=== PATIENT | female | born 1990 | race Caucasian/White ===

== ENCOUNTER 2024-03-10 00:33 | Day surgery (SDC) | payer OTHER, SELFPAY ==
[2024-02-25 12:36] VITALS: BMI 23.8
[2024-03-10 11:27] VITALS: BMI 23.9
[2024-03-10 11:31] VITALS: BP 122/71; PULSE 72; RESP 19; TEMP 36.4; O2SAT 100
[2024-03-10] MEDS: LACTATED RINGERS 1,000 ML 150 ML IV CONT (11:33)
--- NOTE | 2024-03-10 11:47 | P.PNAN_ITS ---
Anes - Initial Pre Proc Eval Procedure: Operation Date: 03/10/24 12:30 Proposed Procedures p Esophagogastroduodenoscopy - Matt Hayes MD Date/Time: 03/10/24 11:47 Surgeon: Matt Hayes MD Pre Op Diagnosis: Dysphagia Patient Data Age: 33 Gender: F Height: 1.65 m Weight: 65.3 kg Last Vital Signs Temp 97.5 F L 03/10/24 11:31 Pulse 72 03/10/24 11:31 Resp 19 03/10/24 11:31 BP 122/71 03/10/24 11:31 Pulse Ox 100 03/10/24 11:31 O2 Del Method Room Air 03/10/24 11:31 Allergies Allergy/AdvReac Type Severity Reaction Status Date / Time No Known Allergies Allergy Verified 03/10/24 11:26 Home Medications Medication Instructions Recorded Confirmed Type bupropion HCl 150 mg 24 hr tablet, 150 mg PO DAILY 10/02/23 03/10/24 History extended release loratadine 10 mg tablet (Claritin) 10 mg PO DAILY 10/02/23 03/10/24 History minocycline 100 mg capsule 100 mg PO DAILY #30 caps 02/17/24 03/10/24 Rx azelaic acid 15 % topical foam 1 applic topical BID #50 grams 02/23/24 03/10/24 Rx (Finacea) linaclotide 145 mcg capsule 145 mcg PO QAM 30 days #30 caps 02/23/24 03/10/24 Rx (Linzess) sulfacetamide sodium (acne) 10 % 1 applic topical BID #118 mL 02/23/24 03/10/24 Rx lotion (suspension) alprazolam 0.25 mg tablet (Xanax) 0.25 mg PO BID PRN anxious 02/25/24 03/10/24 History spironolactone 50 mg tablet 50 mg PO DAILY 02/25/24 03/10/24 History Patient hx anesthesia problems: none Family hx anesthesia problems: none Results Review: All pre-operative results and documents have been reviewed as part of the pre- operative evaluation. [facility] Past Medical History Medical History (Updated 09/29/23 @ 14:40 by Matt Hayes MD) Dysphagia Social History Social History Smoking status: Never smoker Alcohol intake: current Alcohol use details: Rarely Substance use type: does not use Living arrangements: with family Spiritual care concerns: No Anes - Eval Final PreProcedure Day of Procedure 03/10/24 11:47 Patient weight: normal Heart: regular rate and rhythm Lungs: clear to auscultation Airway: Mallampati scale class II Neurological: alert and oriented Last oral intake: >/= 8 hours ASA classification: II Emergent: no Anesthetic plan: proceed Anesthesia type and monitoring: general GIVS and standard monitoring Results Review: All pre-operative results and documents have been reviewed as part of the pre-operative evaluation. Informed Consent: The patient's anesthetic plan and its attendant risks and benefits were discussed with the patient/family/POA. Questions were solicited and answers provided to the satisfaction of the patient/family/POA.
--- NOTE | 2024-03-10 12:15 | PM.HPGS ---
History of Present Illness History of Present Illness Consent: Risks, benefits, and alternatives have been discussed and questions answered. Patient agrees to proceed with procedure. Chief complaint: Dysphagia Narrative: Gracie Jasmine is a 33 year old female here for intermittent dysphagia to solids, had EGD but several years ago Review of Systems Review of Systems: All systems reviewed & are unremarkable except as noted in HPI and below PMFSH Past Medical History Medical History (Updated 09/29/23 @ 14:40 by Matt Hayes MD) Dysphagia Social History Social History Smoking status: Never smoker Alcohol intake: current Alcohol use details: Rarely Substance use type: does not use Living arrangements: with family Spiritual care concerns: No Meds Home Medications and Allergies Home Medications Medication Instructions Recorded Confirmed Type bupropion HCl 150 mg 24 hr tablet, 150 mg PO DAILY 10/02/23 03/10/24 History extended release loratadine 10 mg tablet (Claritin) 10 mg PO DAILY 10/02/23 03/10/24 History minocycline 100 mg capsule 100 mg PO DAILY #30 caps 02/17/24 03/10/24 Rx azelaic acid 15 % topical foam 1 applic topical BID #50 grams 02/23/24 03/10/24 Rx (Finacea) linaclotide 145 mcg capsule 145 mcg PO QAM 30 days #30 caps 02/23/24 03/10/24 Rx (Linzess) sulfacetamide sodium (acne) 10 % 1 applic topical BID #118 mL 02/23/24 03/10/24 Rx lotion (suspension) alprazolam 0.25 mg tablet (Xanax) 0.25 mg PO BID PRN anxious 02/25/24 03/10/24 History spironolactone 50 mg tablet 50 mg PO DAILY 02/25/24 03/10/24 History Allergies Allergy/AdvReac Type Severity Reaction Status Date / Time No Known Allergies Allergy Verified 03/10/24 11:26 Vital Signs Vital Signs - 24 hr 03/10/24 11:31 Temperature 97.5 F L Pulse Rate 72 Respiratory Rate 19 Blood Pressure 122/71 Pulse Oximetry 100 Oxygen Delivery Room Air Exam Const: General: comfortable and no acute distress HENMT: Face/Nose/Sinus: Normal nares present Eyes: General: appearance normal, both eyes and all related structures Neck: Neck: no JVD Resp: Auscultation: clear to auscultation bilaterally Cardio: Rate: regular rate Rhythm: regular rhythm GI: Inspection: non-distended GI Palp: Yes Soft to palpation Skin: General skin exam: normal color Neuro: General: gait normal Speech: normal speech Extrem: General: normal to inspection Psych: Mental Status: mental status grossly normal Assessment and Plan Assessment and plan (1) Dysphagia: Code(s): R13.10 - Dysphagia, unspecified Status: Acute Assessment and Plan: egd with bx
[2024-03-10 12:37] VITALS: BP 88/47; PULSE 76; RESP 22; O2SAT 100
[2024-03-10 12:47] VITALS: BP 99/63; PULSE 69; RESP 16; O2SAT 100
[2024-03-10 12:57] VITALS: BP 101/67; PULSE 61; RESP 15; O2SAT 100
== END 2024-03-10 13:08 | disposition home or self-care (01) ==
PROVIDERS: Visit Provider Internal Medicine Gastroenterology
PROC: 0DJ08ZZ Inspection of Upper Intestinal Tract, Via Natural or Artificial Opening Endoscopic (ICD-10-PCS; CPT 43235; principal; 2024-03-10 12:30)
DX: K20.0 Eosinophilic esophagitis (principal); K31.84 Gastroparesis
CPT/HCPCS: 43239; 88305; J2001; J2405; J2704; J3010; J7120

== ENCOUNTER 2024-04-01 13:22 | Outpatient (CLI) | payer OTHER, SELFPAY ==
[2024-04-01 14:18] LABS: Anion Gap 5 mmol/L (4-12); Blood Urea Nitrogen 12 mg/dL (7-17); Calcium 9.2 mg/dL (8.4-10.2); Carbon Dioxide 27 mmol/L (22-30); Chloride 108 mmol/L (98-107); Estimated Glomerular Filt Rate > 60; Glucose 84 mg/dL (65-110); Potassium 3.9 mmol/L (3.4-5.0); Sodium 140 mmol/L (137-145)
== END 2024-04-01 13:23 | disposition home or self-care (01) ==
LOC: ANHLAB 13:25
PROVIDERS: Visit Provider Anesthesiology
DX: Z01.818 Encounter for other preprocedural examination (principal)
CPT/HCPCS: 36415; 80048

== ENCOUNTER 2024-04-06 05:58 | Day surgery (SDC) | payer OTHER, SELFPAY ==
[2024-04-06] VITALS (14 sets, daily range): BP systolic 80–112; BP diastolic 52–76; PULSE 50–74; RESP 14–20; TEMP 36.1–37.1; O2SAT 98–100; BMI 24.5
--- NOTE | 2024-04-06 07:14 | P.PNAN_ITS ---
Anes - Initial Pre Proc Eval Procedure: Operation Date: 04/06/24 07:30 Proposed Procedures p Bilateral Breast Augmentation Mammoplasty - Óscar Ruvalcaba MD s Bilateral Breast Mastopexy - Óscar Ruvalcaba MD Date/Time: 04/06/24 07:14 Surgeon: Óscar Ruvalcaba MD Pre Op Diagnosis: Micromastia, Breast Ptosis Patient Data Age: 33 Gender: F Height: 1.65 m Weight: 66.8 kg Last Vital Signs Temp 37.1 C 04/06/24 06:40 Pulse 69 04/06/24 06:40 Resp 16 04/06/24 06:40 BP 112/76 04/06/24 06:40 Pulse Ox 100 04/06/24 06:40 O2 Del Method Room Air 04/06/24 06:40 Allergies Allergy/AdvReac Type Severity Reaction Status Date / Time No Known Allergies Allergy Verified 04/06/24 06:22 Home Medications Medication Instructions Recorded Confirmed Type bupropion HCl 150 mg 24 hr tablet, 150 mg PO DAILY 10/02/23 04/06/24 History extended release loratadine 10 mg tablet (Claritin) 10 mg PO DAILY 10/02/23 04/06/24 History minocycline 100 mg capsule 100 mg PO DAILY #30 caps 02/17/24 04/05/24 Rx azelaic acid 15 % topical foam 1 applic topical BID #50 grams 02/23/24 04/05/24 Rx (Finacea) linaclotide 145 mcg capsule 145 mcg PO QAM 30 days #30 caps 02/23/24 04/05/24 Rx (Linzess) sulfacetamide sodium (acne) 10 % 1 applic topical BID #118 mL 02/23/24 04/05/24 Rx lotion (suspension) alprazolam 0.25 mg tablet (Xanax) 0.25 mg PO BID PRN anxious 02/25/24 04/05/24 History spironolactone 50 mg tablet 50 mg PO DAILY 02/25/24 04/05/24 History Patient hx anesthesia problems: none Family hx anesthesia problems: none Results Review: All pre-operative results and documents have been reviewed as part of the pre- operative evaluation. [facility] Past Medical History Medical History Dysphagia Social History Social History Smoking status: Never smoker Alcohol intake: current Alcohol use details: Rarely Substance use: former Substance use type: marijuana Living arrangements: with family Spiritual care concerns: No Anes - Eval Final PreProcedure Day of Procedure 04/06/24 07:14 Patient weight: normal Heart: regular rate and rhythm Lungs: clear to auscultation Airway: Mallampati scale class II Neurological: alert and oriented Last oral intake: >/= 8 hours ASA classification: I Emergent: no Anesthetic plan: proceed Anesthesia type and monitoring: general LMA and standard monitoring Results Review: All pre-operative results and documents have been reviewed as part of the pre- operative evaluation. Informed Consent: The patient's anesthetic plan and its attendant risks and benefits were discussed with the patient/family/POA. Questions were solicited and answers provided to the satisfaction of the patient/family/POA.
[2024-04-06] MEDS: LACTATED RINGERS 1,000 ML 30 ML IV CONT ×2 (07:20→10:02)
--- NOTE | 2024-04-06 07:20 | P.OP_ITS ---
Procedure Note - Detailed Date of Procedure 04/06/24 Pre-op Diagnosis Micromastia, Breast Ptosis Post-op Diagnosis Same Procedure Performed Bilateral breast augmentation mastopexy Surgeon Óscar Ruvalcaba MD Anesthesia General Findings Inverted T Superior medial pedicle Bilateral Goldie Garcia SofTouch 410cc Right - Ref# [id number] SN [id number] Left - Ref# [id number] SN [id number] Description of Procedure She is here today for bilateral breast augmentation mastopexy. Previously and again today the risks, benefits, alternatives were discussed in extensive detail. I wanted her to be very realistic about the risks involved as well as expectations. We discussed aftercare and what to monitor for. Made sure answered all of her questions to her satisfaction today and consent was obtained. Marked in the preoperative holding area with their verification. The patient was taken to the operating room placed supine on the operating table. Anesthesia was provided by anesthesiology. A surgical time-out was taken. We cleansed the skin and 1% lidocaine and 0.25% Marcaine with epinephrine was used anesthetize as a field block. She was prepped and draped in a standard sterile fashion. Tegaderm nipple Engel were placed. A 15 blade used to make an incision just superior to the inframammary fold leaving a cusp of de-epithelized tissue at the t junction. Dissection was continued until the chest wall as identified. I incised the pectoralis major along its inferior border and completely released the inferior border leaving the medial border intact. I created a subpectoral pocket in the appropriate dimensions based on our preoperative planning for the implant. I then copiously irrigated with saline solution and verified a strict hemostasis. Next the use a triple antibiotic and Betadine containing solution to irrigate the pocket. I washed my gloves with the triple antibiotic and Betadine solution. We washed the implant immediately upon opening it with this solution and only opened it when we needed it. I used implant funnel and no-touch samir hnique. The implant was introduced into the pocket using the funnel. Having verified positioning of the implant this was closed using 2-0 PDS. I tailor tacked the breast into position. Placed her in a sitting position. Verified the nipple-areolar location based on preoperative planning as well as intraoperative observations and measurements in full agreement. She was placed supine. I de-epithelialized the pedicle. I then removed the inferior central portion of the breast need making sure the implant was well protected. I elevated medial and lateral tissue flaps as well for planned closure. I closed along the IMF with 2-0 Stratafix. Along the vertical with 2-0 PDS. I closed around the areola with 3-0 strata fix. 3-0 Monocryl along the vertical. 3-0 Stratafix along the IMF. I finally closed everything with running subcuticular 4-0 Monocryl and tissue glue. Fluffs and surgical bra were placed. Estimated Blood Loss 50 Drains No Packing No Pathology None sent Complications No immediate complications Condition Stable Disposition PACU
--- NOTE | 2024-04-06 07:20 | WPDHPUPDATE1 ---
History and Physical Update Update Date/Time: 04/06/24 07:20 History and Physical has been reviewed, including an updated exam of the patient. There are NO changes in the patient's condition. Risks, benefits, and alternatives have been discussed and questions answered. Patient agrees to proceed with procedure.
[2024-04-06] MEDS: SCOPOLAMINE 1 MG PATCH 1 PATCH TRANSDERM (07:24)
[2024-04-06] MEDS: ceFAZolin 2 GM/D5W 50 ML 2 GM/50 ML BAG IVPB (07:30)
[2024-04-06] MEDS: TRANEXAMIC ACID 1,000 MG/10 ML AMPUL 1000 MG IV PUSH (07:40)
[2024-04-06] MEDS: LIDO 1%/EPINEPHRINE 1:100,000 20 ML VIAL 30 ML INFILTRATE (07:47)
[2024-04-06] MEDS: NACL 0.9% IRRIG POUR BOTTLE 900 ML, GENTAMICIN SULFATE INJ 160 MG, ceFAZolin 2 GM, POVI... IRRIGATION (08:30)
[2024-04-06] MEDS: fentaNYL CITRATE INJ (*CRX) 100 MCG/2 ML VIAL 25 MCG IV PUSH ×4 (10:36→11:08)
[2024-04-06] MEDS: oxyCODONE HCL (*CRX) 5 MG TAB IR PO (12:06)
[2024-04-06] MEDS: KETOROLAC 30 MG/ML VIAL (*BKC) 15 MG IV PUSH (12:15)
--- NOTE | 2024-04-06 12:19 | SUR.PHASEII ---
Pt's blood pressure in phase 2 recovery 90/55 (90s/50s consistently), HR 50-60s. Spoke with Dr. Davila regarding pt's blood pressure in recovery who states pt okay to be discharged. No further orders at this time.
--- NOTE | 2024-04-06 12:23 | SUR.PHASEII ---
late note 1210 Pt states pain is increasing and would like to know if can have ibuprofen before D/C. Spoke with Dr. Ruvalcaba who states pt can have Toradol 15mg IV before D/C. Pt states would like Toradol. Pt concerned about amount of pain in recovery. Pt was reporting 6/10 pain and now is a 9/10 after Fentanyl and Oxycodone administration. Dr. Ruvalcaba at bedside to speak with pt regarding pain. Per Dr. Ruvalcaba pt okay to be discharged. Pt states has picked up pain medication prescriptions from pharmacy. Toradol given. No further orders at this time. VSS.
--- NOTE | 2024-04-06 12:26 | WPDANESPN ---
Anes - Prog Note Post-Op Date/Time: 04/06/24 12:26 Cardiovascular status: normal Respiratory status: normal Airway patency: baseline Mental status: baseline Post-Op hydration status: normal Vital Signs: Last Vital Signs Temp 36.6 C 04/06/24 11:02 Pulse 64 04/06/24 11:58 Resp 18 04/06/24 11:58 BP 90/55 L 04/06/24 11:58 Pulse Ox 100 04/06/24 11:58 O2 Del Method Room Air 04/06/24 11:58 O2 Flow Rate 10 04/06/24 10:32 Pain Score (VAS): 4/10 I/O: Intake & Output 04/05/24 04/06/24 04/06/24 23:59 07:59 15:59 Intake Total 1500 Balance 1500 Patient Feedback: Patient satisfied with anesthetic care.
== END 2024-04-06 12:36 | disposition home or self-care (01) ==
PROVIDERS: Visit Provider Surgery Plastic and Reconstructive Surgery
PROC: (CPT 19325; principal; 2024-04-06 07:30)
PROC: (CPT 19316; 2024-04-06 07:30)
DX: N64.82 Hypoplasia of breast (principal); N64.81 Ptosis of breast
CPT/HCPCS: 19325